=== PATIENT | female | born 1975 | race Caucasian/White ===

== ENCOUNTER 2017-02-26 23:28 | Emergency (ER) | payer OTHER ==
--- NOTE | 2017-02-27 06:00 | ED ORDER SUMMARY ---
..... Patient: RODRIGUE ROSE OrderSheet [facility] VisitID: [id number] [place] [address] 41y, F Registration Date/Time: 02/26/2017 ORDER SHEET Weight: 56.6 kg (estimated) Allergies: None GENERAL ORDERS: UA-Culture if indicated Urgent (23:54 02/26/2017 RMarsden R.N. per protocol) (Collected 0:01 RMarsden R.N.) (0:10 AMcQuoid ER Tech1) CT Abd/Pel w Cont (No) (N/A) Urgent (00:56 02/27/2017 Pio BRADY) (Ack 1:04 Jak) (2:01 Saqib) CBC w Diff Urgent (00:57 02/27/2017 Pio BRADY) (Ack 1:04 Jak) (Collected 1:16 RMarsden R.N.) (1:22 AMcQuoid ER Tech1) CMP Urgent (00:57 02/27/2017 Pio BRADY) (Ack 1:04 Jak) (Collected 1:16 RMarsden R.N.) (1:22 AMcQuoid ER Tech1) Amylase Urgent (00:57 02/27/2017 Pio BRADY) (Ack 1:04 Jak) (Collected 1:16 RMarsden R.N.) (1:22 AMcQuoid ER Tech1) Lipase Urgent (00:57 02/27/2017 Pio BRADY) (Ack 1:04 Jak) (Collected 1:16 RMarsden R.N.) (1:22 AMcQuoid ER Tech1) MEDICATION ORDERS: IV FLUIDS: Zofran IV 4 mg (NOW) (23:52 02/26/2017 RMarsden R.N. per protocol) (0:01 RMarsden R.N.) IV Saline Lock (23:54 02/26/2017 RMarsden R.N. per protocol) (0:02 RMarsden R.N.) Demerol IV 12.5 mg (NOW) (01:11 02/27/2017 Pio BRADY) (Ack 1:17 RMarsden R.N.) (1:29 RMarsden R.N.) IV NS : initial bolus none -, then 1000 mL/hr for X1 (NOW); Routine (:02/27/2017 Pio BRADY) (1:45 RMarsden R.N.) Zofran IV 4 mg (NOW) (:02/27/2017 Pio BRADY) (1:46 RMarsden R.N.) Dilaudid IV 0.5 mg (NOW) (02:02/27/2017 Pio BRADY) (Ack 3:30 RMarsden R.N.) (3:47 RMarsden R.N.) Ativan IV 0.5 mg (NOW) (:02/27/2017 Pio BRADY) (Ack 3:30 RMarsden R.N.) (3:48 RMarsden R.N.) Toradol IV 30 mg (NOW) (02:02/27/2017 Pio BRADY) (Ack 3:30 RMarsden R.N.) (3:48 RMarsden R.N.) ORDER SHEET NOTES: [Electronically signed by Saba Miller R.N. (06:02 02/27/2017)] [Electronically signed by Jono Najera MD (07:38 02/28/2017)] [Electronically locked/signed by Saba Miller R.N. (06:02 02/27/2017)]
--- NOTE | 2017-02-27 06:00 | ED ORDER SUMMARY ---
..... Patient: RODRIGUE ROSE OrderSheet [facility] VisitID: [id number] [place] [address] 41y, F Registration Date/Time: 02/26/2017 ORDER SHEET Weight: 56.6 kg (estimated) Allergies: None GENERAL ORDERS: UA-Culture if indicated Urgent (23:54 02/26/2017 RMarsden R.N. per protocol) (Collected 0:01 RMarsden R.N.) (0:10 AMcQuoid ER Tech1) CT Abd/Pel w Cont (No) (N/A) Urgent (00:56 02/27/2017 Pio BRADY) (Ack 1:04 Jak) (2:01 Saqib) CBC w Diff Urgent (00:57 02/27/2017 Pio BRADY) (Ack 1:04 Jak) (Collected 1:16 RMarsden R.N.) (1:22 AMcQuoid ER Tech1) CMP Urgent (00:57 02/27/2017 Pio BRADY) (Ack 1:04 Jak) (Collected 1:16 RMarsden R.N.) (1:22 AMcQuoid ER Tech1) Amylase Urgent (00:57 02/27/2017 Pio BRADY) (Ack 1:04 Jak) (Collected 1:16 RMarsden R.N.) (1:22 AMcQuoid ER Tech1) Lipase Urgent (00:57 02/27/2017 Pio BRADY) (Ack 1:04 Jak) (Collected 1:16 RMarsden R.N.) (1:22 AMcQuoid ER Tech1) MEDICATION ORDERS: IV FLUIDS: Zofran IV 4 mg (NOW) (23:52 02/26/2017 RMarsden R.N. per protocol) (0:01 RMarsden R.N.) IV Saline Lock (23:54 02/26/2017 RMarsden R.N. per protocol) (0:02 RMarsden R.N.) Demerol IV 12.5 mg (NOW) (01:11 02/27/2017 Pio BRADY) (Ack 1:17 RMarsden R.N.) (1:29 RMarsden R.N.) IV NS : initial bolus none -, then 1000 mL/hr for X1 (NOW); Routine (:02/27/2017 Pio BRADY) (1:45 RMarsden R.N.) Zofran IV 4 mg (NOW) (:02/27/2017 Pio BRADY) (1:46 RMarsden R.N.) Dilaudid IV 0.5 mg (NOW) (02:02/27/2017 Pio BRADY) (Ack 3:30 RMarsden R.N.) (3:47 RMarsden R.N.) Ativan IV 0.5 mg (NOW) (:02/27/2017 Pio BRADY) (Ack 3:30 RMarsden R.N.) (3:48 RMarsden R.N.) Toradol IV 30 mg (NOW) (02:02/27/2017 Pio BRADY) (Ack 3:30 RMarsden R.N.) (3:48 RMarsden R.N.) ORDER SHEET NOTES: [Electronically signed by Saba Miller R.N. (06:02 02/27/2017)] [Electronically signed by Jono Najera MD (07:38 02/28/2017)] [Electronically locked/signed by Saba Miller R.N. (06:02 02/27/2017)]
--- NOTE | 2017-02-27 06:00 | ED NURSING NOTES ---
Clinical Report - Nurses [facility] [place] [address] 02/26/2017 23:33 Patient: RODRIGUE ROSE TRIAGE Acuity: LEVEL 3. Chief Complaint: ABDOMINAL PAIN and NAUSEA and (bloating). 23:49 02/26/17. Alert. No acute distress. SEPSIS SCREEN: Sepsis Screen. Negative (no infection suspected/documented). BERHANE COMA SCORE: Tracy Coma Scale: 15- eyes open spontaneously (4); best verbal response- oriented x 4 (5); best motor response- obeys commands (6). --23:50 Saba Miller R.N. 23:38 02/26/17. BP: 103/60 (regular adult cuff) taken on the left arm, while sitting. HR: 65. RR: 14. O2 saturation: 100%. Temp: 98.1 F. --23:50 Saba Miller R.N. Weight: 56.6 kg estimated. Height/Length: 66 inches Estimated. BMI: 20.1. --23:50 Saba Miller R.N. Medications None. --23:44 Saba Miller R.N. Allergies None. --23:44 Saba Miller R.N. History Arrived by private vehicle. Historian: patient. Accompanied by family. This started today. ( Patient states she became bloated today, and then began feeling lower abdominal pain that "radiates out" to the rest of the abdomen. Patient states she felt a little better after rest, but then the pain returned. She states "I felt like I was going to pass out so I came in"). ( Patient's states she has vomited 5 times). Last oral intake by patient was yesterday. Treatment INFECTION CONTROL COORDINATOR: Took Tylenol. (gas-x). PAST MEDICAL HX: Immunizations: up-to-date. Denies current . SOCIAL HX: Never smoker. Occasional alcohol use. No drug use. FALL RISK ASSESSMENT: Fall risk assessment completed. No fall risk identified. NUTRITIONAL RISK ASSESSMENT: The nutritional risk assessment revealed no deficiencies. FUNCTIONAL ASSESSMENT: Functional assessment: no impairments noted. LEARNING NEEDS ASSESSMENT: The learning needs assessment revealed no barriers. SKIN INTEGRITY ASSESSMENT: Skin integrity risk assessment completed. No skin integrity risk identified. --23:50 Saba Miller R.N. PROBLEMS: no known problems. ADDITIONAL SURGERIES: no known surgeries. Interventions ID band on patient. To treatment room. --23:50 Saba Miller R.N. PHYSICAL ASSESSMENT 23:51 02/26/17. Ambulatory to room. GENERAL / NEURO / PSYCH: Alert. Oriented X 4. Appears in no acute distress. HEENT: Mucous membranes are pink. RESPIRATORY: Respirations not labored. Breath sounds within normal limits. CVS: Capillary refill less than 2 seconds. GI / : The patient has had nausea. Emesis noted. Has vomited once (clear liquid emesis). Abdominal distention with tenderness to palpation. Bowel sounds within normal limits. SKIN: Skin is warm and dry. --23:51 Saba Miller R.N. NURSING PROGRESS NOTES 23:49 02/26/2017 Site #1 started via IV in the left antecubital space with an 20g angiocath, with aseptic technique and good blood return; one attempt. Blood drawn: rainbow set. Labeled in the presence of the patient and sent to the lab. Saline lock flushed with 10 mL saline. --23:54 Shweta Teran 00:01 02/27/2017 Zofran (Ondansetron HCl) IVP 4 mg given over 2 minute(s) via site #1. Allergies verified and confirmed 5 rights. IV patency established. IV site checked: no pain, redness, or swelling. IV flushed thoroughly pre- and post-medication administration. IVP given by RN. --00:01 Saba Miller R.N. 00:03 02/27/17. Patient gowned. Reassurance given. Patient identifiers checked. Call light placed in reach. Side rails up x 1. Bed placed in lowest position. Brakes of bed on. Patient ready for evaluation- chart flagged and notification provided. --00:03 Saba Miller R.N. 01:15. ( Tech was at patient's bedside to give her extra blankets as requested by patient. Patient also requesting pain medication, ER notified.). --01:23 Soledad Buenrostro late entry - 23:46. Patient ID band checked for patient name and birthdate: patient confirmed. Blood samples drawn from the left antecubital space by nurse per protocol ; labeled in presence of the patient and sent to lab: rosa set. (drawn by ADELA Rock). Patient ID band checked for patient name and birthdate: patient confirmed. Instructions provided to collect clean catch urine and patient verbalized understanding. Clean catch urine collected with return of yellow-colored urine; sample sent to lab for urinalysis. Specimen labeled in the presence of the patient. --00:15 Saba Miller R.N. 01:29 02/27/2017 Demerol (Meperidine HCl) IVP 12.5 mg given over 1 minute(s) via site #1. Allergies verified and confirmed 5 rights. IV patency established. IV site checked: no pain, redness, or swelling. IV flushed thoroughly pre- and post-medication administration. IVP given by RN. --01:29 Saba Miller R.N. 01:40 02/27/2017 Started bag #1 1000 mL IV Fluids IV NS (Saline); bolus of 1000 mL wide open via site #1. Allergies verified and confirmed 5 rights. IV patency established. IV site checked: no pain, redness, or swelling. IV flushed thoroughly pre- and post-medication administration. Completed per protocol. --01:45 Saba Miller R.N. 01:41 02/27/2017 Zofran (Ondansetron HCl) IVP 4 mg given over 2 minute(s) via site #1. Allergies verified and confirmed 5 rights. IV patency established. IV site checked: no pain, redness, or swelling. IV flushed thoroughly pre- and post-medication administration. IVP given by RN. --01:46 Saba Miller R.N. 02:02 02/27/17. BP: 111/57 taken on the right arm, while lying. HR: 74. RR: 16. O2 saturation: 98% on room air. Pain level now: 12/21. --02:19 Saba Miller R.N. Pulse oximeter and NIBP monitor placed on patient. Patient and family informed about reason for wait and about plan of care. --02:19 Saba Miller R.N. 02:02 02/27/2017 Demerol IVP Response: no adverse reaction pain is improving. The patient feels better. 02/27/2017 02:02 BP: 111/57. HR: 74. RR: 16. O2 saturation: 98%. Pain level now: 12/21. --02:43 Saba Miller R.N. 02:41 02/27/17. Reassessment after fluids administered and medication administered. She is sleeping and has had no adverse reaction. Overall patient status is improved. --02:41 Saba Miller R.N. 03:37 02/27/2017 Dilaudid (HYDROmorphone HCl PF) IVP 0.5 mg given over 1.5 minute(s) via site #1. Allergies verified, confirmed 5 rights and sedative warning given to the patient and patient's family. IV patency established. IV site checked: no pain, redness, or swelling. IV flushed thoroughly pre- and post-medication administration. IVP given by RN. --03:47 Saba Miller R.N. 03:43 02/27/2017 Toradol IVP 30 mg given over 2 minute(s) via site #1. Allergies verified and confirmed 5 rights. IV patency established. IV site checked: no pain, redness, or swelling. IV flushed thoroughly pre- and post-medication administration. IVP given by RN. --03:48 Saba Miller R.N. 03:48 02/27/2017 Ativan (LORazepam) IVP 0.5 mg given over 2 minute(s) via site #1. Allergies verified, confirmed 5 rights and sedative warning given to the patient and patient's family. IV patency established. IV site checked: no pain, redness, or swelling. IV flushed thoroughly pre- and post-medication administration. IVP given by RN. --03:48 Saba Miller R.N. Patient and family informed about reason for wait and about plan of care. --03:59 Saba Miller R.N. 04:08 02/27/17. BP: 103/61. HR: 86. RR: 16. O2 saturation: 97% on room air. Pain level now: 10/23. Additional comments: Lights dimmed; male nursing teacher remains at bedside. --04:08 Kala Bowers, ER Tech1 04:26 02/27/17. BP: 99/56 taken on the right arm, while sitting. HR: 92. RR: 15. O2 saturation: 96%. Pain level now: 0. --04:26 Saba Miller R.N. 04:10 02/27/2017 Dilaudid IVP Response: no adverse reaction pain is gone now. The patient feels better. 02/27/2017 04:08 BP: 103/61. HR: 86. RR: 16. O2 saturation: 97%. Pain level now: 10/23. --04:42 Saba Miller R.N. 04:10 02/27/2017 Toradol IVP Response: no adverse reaction pain is improving. The patient feels better. 02/27/2017 04:08 BP: 103/61. HR: 86. RR: 16. O2 saturation: 97%. Pain level now: 10/23. --04:43 Saba Miller R.N. 04:10 02/27/2017 Ativan IVP Response: no adverse reaction the patient feels better. 02/27/2017 04:08 BP: 103/61. HR: 86. RR: 16. O2 saturation: 97%. Pain level now: 10/23. --04:43 Saba Miller R.N. DISPOSITION / DISCHARGE 05:08 02/27/17. BP: 101/52. HR: 83. RR: 15. O2 saturation: 96%. Temp: deferred. Pain level now: 0. --05:08 Saba Miller R.N. 05:09 02/27/17. No learning barriers present. Discharge instructions provided and reviewed with the patient and spouse. Reviewed warnings. Reviewed medication(s). Treatments reviewed. Reviewed referrals. Activity restrictions reviewed. Patient and spouse verbalized understanding. Written instructions provided in Moldovan. The patient was discharged home and accompanied by spouse. She left the Emergency Department ambulatory and via private vehicle. Spouse driving. --05:09 Saba Miller R.N. Locked/Released at 02/27/2017 6:02 by Saba Miller R.N.
--- NOTE | 2017-02-27 06:00 | ED CLINICAL REPORT ---
Clinical Report - Physicians/Mid Levels [facility] [address] [place] [address] 02/26/2017 23:33 Patient: RODRIGUE ROSE Time Seen: 00:51 Feb 27 2017. Arrived- By private vehicle. Historian- patient and family. CPT: ER phys charges level 5 (#[id number]). HISTORY OF PRESENT ILLNESS Chief Complaint: ABDOMINAL PAIN. At its maximum, severity described as moderate. When seen in the E.D., severity described as moderate. Modifying factors- worsened by movement. Relieved by rest. It is described as "pain", sharp and stabbing and it is described as located in the lower abdomen. (This started today. ( Patient states she became bloated today, and then began feeling lower abdominal pain that "radiates out" to the rest of the abdomen. Patient states she felt a little better after rest, but then the pain returned. She states "I felt like I was going to pass out so I came in"). ( Patient's states she has vomited 5 times). Last oral intake by patient was yesterday.). Is still present. The patient has had nausea and vomiting. Similar symptoms previously: None. Recent medical care: Not recently seen/assessed. REVIEW OF SYSTEMS No constipation, black stools, hematemesis, difficulty with urination or pain with urination. No urinary frequency, fever, sore throat, chest pain or difficulty breathing. No cough, joint pain, skin rash, chills or back pain. Denies current . All systems otherwise negative, except as recorded above. PAST HISTORY Ovarian cyst. Additional Surgeries: no known surgeries. Medications: None. Allergies: None. SOCIAL HISTORY Never smoker. No alcohol use or drug use. ADDITIONAL NOTES The nursing notes have been reviewed. PHYSICAL EXAM Vital Signs: 02/26/2017 23:38 BP: 103/60. HR: 65. RR: 14. O2 saturation: 100%. Temp: 98.1 F. Appearance: Alert. Appears to be in pain. Patient in moderate distress. Eyes: Pupils equal, round and reactive to light. Eyes normal inspection. ENT: Pharynx normal. Neck: Normal inspection. CVS: Normal heart rate and rhythm. Heart sounds normal. Pulses normal. Respiratory: No respiratory distress. Breath sounds normal. Chest nontender. Abdomen: Soft. Moderate tenderness in the lower abdomen with guarding present. Abnormal bowel sounds: diminished. Back: Normal inspection. No CVA tenderness. Skin: Skin warm. Normal skin color. No rash. Neuro: Oriented X 3. No motor deficit. No sensory deficit. LABS, X-RAYS, AND EKG Abdominal CT: Appendix normal. No diverticulitis. Ovarian cyst on the left , some free fluid Hemangioma in liver. Needs US follow-up. Abdominal CT performed with IV contrast. The study was independently viewed by me and interpreted by the radiologist. Laboratory Tests: CBC w Diff: (CARTER: 02/27/2017 00:01) ( MsgRcvd 02/27/2017 01:08) Final results Test Result Flag Units (Reference) WHITE BLOOD COUNT 14.8 H K/uL (4.5-11.5) RED BLOOD COUNT 3.96 L M/uL (4.00-5.20) HEMOGLOBIN 12.5 gm/dL (12.0-16.0) HEMATOCRIT 36.2 % (36.0-46.0) MEAN CELL VOLUME 91 fL (80-100) MEAN CORPUSCULAR HGB 32 pg (26-34) MEAN CORPUSCULAR HGB CONC 35 g/dL (31-37) RED CELL DISTRIBUTION WIDTH 13.1 % (11.6-14.8) PLATELET COUNT 193 K/uL (150-400) NEUTROPHIL % 82.2 H % (50-75) LYMPH % 13.7 L % (25-40) MONO % 3.6 % (3-14) EOSINOPHIL % 0.4 % (0-4) BASOPHIL % 0.1 % (0-2) CMP: (CARTER: 02/27/2017 00:01) ( MsgRcvd 02/27/2017 01:20) Final results Test Result Flag Units (Reference) GLUCOSE 116 H mg/dL (70-110) BUN 13 mg/dL (7-18) CREATININE 0.7 mg/dL (0.6-1.3) Estimated GFR >60 mL/min Estimated GFR- >60 mL/min Note: Persistent reduction over 3 months in eGFR<60 mL/min/1.73 m2 defines CKD. Patients with eGFR values>=60 mL/min/1.73 m2 may also have CKD if evidence ofpersistent proteinuria. Additional information may be foundat www.kidney.org. SODIUM 138 mmol/L (136-145) POTASSIUM 3.4 L mmol/L (3.5-5.1) CHLORIDE 101 mmol/L (98-107) CARBON DIOXIDE 28 mmol/L (21-32) CALCIUM 8.6 mg/dL (8.5-10.1) TOTAL PROTEIN 7.1 g/dL (6.4-8.2) ALBUMIN 3.7 g/dL (3.3-5.0) BILIRUBIN, TOTAL 0.6 mg/dL (0.0-1.0) ALKALINE PHOSPHATASE 64 U/L (46-116) AST (SGOT) 15 U/L (15-37) ALT (SGPT) 20 U/L (12-78) LIPASE 94 U/L (73-393) AMYLASE 41 U/L (25-115) UA-Culture if indicated: (CARTER: 02/26/2017 23:47) ( MsgRcvd 02/27/2017 00:22) Final results Test Result Flag Units (Reference) URINE COLOR YELLOW URINE APPEARANCE CLEAR URINE GLUCOSE NEGATIVE (NEGATIVE) URINE BILIRUBIN NEGATIVE (NEGATIVE) URINE KETONE NEGATIVE (NEGATIVE) URINE SPECIFIC GRAVITY 1.015 (1.010-1.030) URINE PH 6.0 (5.0-8.0) URINE PROTEIN NEGATIVE (NEGATIVE) URINE UROBILINOGEN 0.2 EU/dL (0.2-1.0) URINE NITRITE NEGATIVE (NEGATIVE) URINE BLOOD NEGATIVE (NEGATIVE) URINE LEUK ESTERASE NEGATIVE (NEGATIVE) URINE RBC RARE rbc/hpf (0-1) URINE WBC 1-3 wbc/hpf (0-1) URINE EPITHELIAL CELLS 5-10 EPI/hpf (0-5) URINE BACTERIA NONE SEEN (NONE SEEN) URINE COMMENT CULT NOT INDICATED URINE CULTURES ARE SET-UP BASED ON THE FOLLOWING CRITERIA:POSITIVE NITRITEPOSITIVE LEUKOCYTE ESTERASEGREATER THAN 10 WHITE BLOOD CELLSMODERATE (2+) OR GREATER BACTERIA . PROGRESS AND PROCEDURES Course of Care: 04:58 02/27/17. Much better now. 06:19 02/27/17. Pt has left ER and Dr Gage called with over-read and thinks appendix may be part of the problem. Pt called to return for r/o appendicitis and no charge for second ER visit. Patient/family counseled. Disposition: Discharged. Condition: unchanged. CLINICAL IMPRESSION Single ruptured simple left ovarian cyst. INSTRUCTIONS No strenuous activity. Rest. Drink plenty of fluids. Warnings: Further evaluation is necessary. GENERAL WARNINGS: Return or contact your physician immediately if your condition worsens or changes unexpectedly, if not improving as expected, or if other problems arise. Prescription Medications: Zofran (orally disintegrating tablets) 4 mg: take 1 orally every 4 hours as needed for nausea and vomiting. Dispense ten (10). No refill. Substitution is permissible. Oxycodone/APAP 5 mg/325 mg: take 1 tablet orally every 6 hours as needed for pain. Dispense fifteen (15). No refills. OTC Medications: Take ibuprofen (Advil, Nuprin, etc.) according to label instructions. Available over the counter. Follow-up: Follow up with your doctor Wednesday in two days if not better. Understanding of the discharge instructions verbalized by patient and family. Discharge instructions reviewed with and understanding was verbalized by spouse. (Electronically signed by Jono Najera MD 02/28/2017 7:38)
--- NOTE | 2017-02-27 06:49 | DIAGNOSTIC IMAGING REPORT ---
PROCEDURE: CT ABD/PELVIS WITH CONTRAST INDICATION: Right abdominal pain. Vomiting. Elevated white blood count (14,800). TECHNIQUE: 125 ml of Isovue 300 were injected intravenously and axial images were obtained of the entire abdomen and pelvis with sagittal and coronal reformations. Preliminary report provided by Ryley Saha MD ([facility]). COMPARISON: None. FINDINGS: ABDOMEN: There is a partially filled tubular structure in the right lower abdomen (axial images 54 - 60) suspicious for a distended appendix with probable hyperdense material at the base of the appendix (note that cecum is medial in position). There are small layering calcified gallstones (most likely incidental finding). There is a 2.3 cm low area in the right lobe of the liver with irregular margins. There is a 10 mm cyst in the central left lobe of the liver. Liver is otherwise normal. Spleen, pancreas, kidneys, and aorta are normal. PELVIS: There is a small amount of free fluid in the right pelvis with mild indistinctness of right adnexal structures. There is 1.8 cm left ovarian cyst. Uterus appears normal. IMPRESSION: 1. Preliminary report suggested normal appendix. However, upon review, there is a tubular structure in the right lower quadrant which may represent a distended and fluid filled appendix, which raises the possibility of acute appendicitis. 2. Associated small amount of fluid in the right pelvis with indistinctness of right adnexal structures might also be a reflection of appendicitis, although pelvic inflammatory disease could also have this appearance. 3. Cholelithiasis (small calcified gallstones). 4. There is a 2.3 cm low density area in the right lobe of the liver which may represent an hemangioma. Ultrasound is recommended to confirm (after the patient's acute illness). 5. Findings were discussed with Dr. Najera (0600 hours). All CT scans at this facility use dose modulation, iterative reconstruction, and/or weight-based dosing when appropriate to reduce radiation dose to as low as reasonably achievable.
[2017-02-27] MEDS ORDERED: NORCO1 TA1 PO ×2 (12:50)
--- NOTE | 2017-02-28 07:38 | ED DISCHARGE INSTRUCTIONS ---
Patient: RODRIGUE ROSE General Instructions [facility] VisitID: [id number] [place] [address] 41y, F Registration Date/Time: 02/26/2017 Single ruptured simple left ovarian cyst. INSTRUCTIONS No strenuous activity. Rest. Drink plenty of fluids. Warnings: Further evaluation is necessary. GENERAL WARNINGS: Return or contact your physician immediately if your condition worsens or changes unexpectedly, if not improving as expected, or if other problems arise. Prescription Medications: Zofran (orally disintegrating tablets) 4 mg: take 1 orally every 4 hours as needed for nausea and vomiting. Dispense ten (10). No refill. Substitution is permissible. Oxycodone/APAP 5 mg/325 mg: take 1 tablet orally every 6 hours as needed for pain. Dispense fifteen (15). No refills. OTC Medications: Take ibuprofen (Advil, Nuprin, etc.) according to label instructions. Available over the counter. Follow-up: Follow up with your doctor Wednesday in two days if not better. Understanding of the discharge instructions verbalized by patient and family. Discharge instructions reviewed with and understanding was verbalized by spouse. ADDITIONAL INFORMATION Ovarian Cyst The ovary is a small organ located on each side of the uterus. During each menstrual cycle a tiny egg sac forms in the ovary. If the egg is released but does not occur, this sac usually dissolves. Sometimes, the sac may fill with fluid. It then enlarges into a painful cyst. Usually the cyst will rupture or shrink on its own. In either case, the pain gradually goes away over the next 1-3 days. If the cyst does not shrink or rupture, it may cause continued pain. Home Care: Rest in bed and avoid heavy exertion until you are feeling better. Heat to the lower abdomen usually helps (heating pad or hot packs -- a small towel soaked in hot water). You may use acetaminophen (Tylenol) or ibuprofen (Motrin, Advil) to control pain, unless another pain medicine was prescribed. [NOTE: If you have chronic liver or kidney disease or ever had a stomach ulcer or GI bleeding, talk with your doctor before using these medicines.] Follow Up: See your doctor within the next 2-3 days if your pain doesnt improve. Otherwise, follow up with your doctor after your next period or as directed by our staff. Get Prompt Medical Attention if any of the following occur: Pain worsens or fails to respond to the above measures Fever of 100.4F (38C) or higher, or as directed by your healthcare provider Heavy vaginal bleeding (soaking one pad an hour for three hours) You feel weak or dizzy Fainting Passage of a pink or hou tissue with menstrual bleeding Ondansetron Oral disintegrating tablet What is this medicine? ONDANSETRON (on JEREMIAH se dominga) is used to treat nausea and vomiting caused by chemotherapy. It is also used to prevent or treat nausea and vomiting after surgery. How should I use this medicine? These tablets are made to dissolve in the mouth. Do not try to push the tablet through the foil backing. With dry hands, peel away the foil backing and gently remove the tablet. Place the tablet in the mouth and allow it to dissolve, then swallow. While you may take these tablets with water, it is not necessary to do so. Talk to your aircraft navigator regarding the use of this medicine in children. Special care may be needed. What side effects may I notice from receiving this medicine? Side effects that you should report to your doctor or health care asst as soon as possible: allergic reactions like skin rash, itching or hives, swelling of the face, lips, or tongue breathing problems dizziness fast or irregular heartbeat feeling faint or lightheaded, falls fever and chills swelling of the hands and feet tightness in the chest Side effects that usually do not require medical attention (report to your doctor or health care asst if they continue or are bothersome): constipation or diarrhea headache What may interact with this medicine? Do not take this medicine with any of the following medications: -apomorphine -cisapride -dofetilide -dronedarone -pimozide -thioridazine -ziprasidone This medicine may also interact with the following medications: -carbamazepine -phenytoin -rifampicin -tramadol -other medicines that prolong the QT interval (cause an abnormal heart rhythm) What if I miss a dose? If you miss a dose, take it as soon as you can. If it is almost time for your next dose, take only that dose. Do not take double or extra doses. Where should I keep my medicine? Keep out of the reach of children. Store between 2 and 30 degrees C (36 and 86 degrees F). Throw away any unused medicine after the expiration date. What should I tell my health care provider before I take this medicine? They need to know if you have any of these conditions: heart disease history of irregular heartbeat liver disease low levels of magnesium or potassium in the blood an unusual or allergic reaction to ondansetron, granisetron, other medicines, foods, dyes, or preservatives or trying to get breast-feeding What should I watch for while using this medicine? Check with your doctor or health care asst as soon as you can if you have any sign of an allergic reaction. You have been given the following additional information: Ovarian Cyst Ondansetron Oral disintegrating tablet No strenuous activity. Rest. (Electronically signed by Jono Najera MD 02/28/2017 7:38)
--- NOTE | 2017-02-28 07:38 | ED MAR SUMMARY ---
..... Medication Administration Record [facility] [address] [place] [address] Patient: RODRIGUE ROSE Visit ID: [id number] 41y, F Weight: 56.6 kg Height/Length: 66 in BMI: 20.1 ALLERGIES: None Given 00:01 02/27/2017 Saba Miller R.N. Medication Administered: ZOFRAN [IVP] (ONDANSETRON HCL), Dose: 4 mg IVP over 2 minute(s), Site: #1 left AC. Medication Ordered: Zofran IV 4 mg (NOW). Given 01:29 02/27/2017 Saba Miller R.N. Medication Administered: DEMEROL [IVP] (MEPERIDINE HCL), Dose: 12.5 mg IVP over 1 minute(s), Site: #1 left AC. Medication Ordered: Demerol IV 12.5 mg (NOW). Start 01:40 02/27/2017 Saba Miller R.N. Medication Administered: IV NS (SALINE), Dose: IV Fluids, Bolus: 1000 mL wide open, Dispensed: 1000 mL bag, Site: #1 left AC. Medication Ordered: IV NS : initial bolus none -, then 1000 mL/hr for X1 (NOW); Routine. Given 01:41 02/27/2017 Sbaa Miller R.N. Medication Administered: ZOFRAN [IVP] (ONDANSETRON HCL), Dose: 4 mg IVP over 2 minute(s), Site: #1 left AC. Medication Ordered: Zofran IV 4 mg (NOW). Given 03:37 02/27/2017 Saba Miller R.N. Medication Administered: DILAUDID [IVP] (HYDROMORPHONE HCL PF), Dose: 0.5 mg IVP over 1.5 minute(s), Site: #1 left AC. Medication Ordered: Dilaudid IV 0.5 mg (NOW). Given 03:43 02/27/2017 Saba Miller R.N. Medication Administered: TORADOL [IVP], Dose: 30 mg IVP over 2 minute(s), Site: #1 left AC. Medication Ordered: Toradol IV 30 mg (NOW). Given 03:48 02/27/2017 Saba Miller R.N. Medication Administered: ATIVAN [IVP] (LORAZEPAM), Dose: 0.5 mg IVP over 2 minute(s), Site: #1 left AC. Medication Ordered: Ativan IV 0.5 mg (NOW).
--- NOTE | 2017-02-28 07:38 | ED MED RECONCILIATION SUMMARY ---
Patient: RODRIGUE ROSE Medication Reconciliation Report [facility] VisitID: [id number] [address] [place] [address] 41y, F Registration Date/Time: 02/26/2017 Weight: 56.6 kg Height/Length: 66 in. BMI: 20.1 ALLERGIES: None The patient's Home Medications are listed below: NONE. The source(s) of the original Home Medication information: Not obtained. The following Medications were given to the patient in the Emergency Department: Zofran [IVP] IVP 4 mg, administered: 02/27/2017 12:01:00 AM Demerol [IVP] IVP 12.5 mg, administered: 02/27/2017 1:29:00 AM IV NS IV Fluids bolus 1000 mL wide open, administered: 02/27/2017 1:40:00 AM Zofran [IVP] IVP 4 mg, administered: 02/27/2017 1:41:00 AM Dilaudid [IVP] IVP 0.5 mg, administered: 02/27/2017 3:37:00 AM Toradol [IVP] IVP 30 mg, administered: 02/27/2017 3:43:00 AM Ativan [IVP] IVP 0.5 mg, administered: 02/27/2017 3:48:00 AM The following Medications were prescribed to the patient: Take ibuprofen (Advil, Nuprin, etc.) according to label instructions. Available over the counter. -- Jono Najera MD Zofran (orally disintegrating tablets) 4 mg: take 1 orally every 4 hours as needed for nausea and vomiting. Dispense ten (10). No refill. Substitution is permissible. -- Jono Najera MD Oxycodone/APAP 5 mg/325 mg: take 1 tablet orally every 6 hours as needed for pain. Dispense fifteen (15). No refills. -- Jono Najera MD
--- NOTE | 2017-02-28 07:38 | ED DISCHARGE INSTRUCTIONS ---
Patient: RODRIGUE ROSE General Instructions [facility] VisitID: [id number] [place] [address] 41y, F Registration Date/Time: 02/26/2017 Single ruptured simple left ovarian cyst. INSTRUCTIONS No strenuous activity. Rest. Drink plenty of fluids. Warnings: Further evaluation is necessary. GENERAL WARNINGS: Return or contact your physician immediately if your condition worsens or changes unexpectedly, if not improving as expected, or if other problems arise. Prescription Medications: Zofran (orally disintegrating tablets) 4 mg: take 1 orally every 4 hours as needed for nausea and vomiting. Dispense ten (10). No refill. Substitution is permissible. Oxycodone/APAP 5 mg/325 mg: take 1 tablet orally every 6 hours as needed for pain. Dispense fifteen (15). No refills. OTC Medications: Take ibuprofen (Advil, Nuprin, etc.) according to label instructions. Available over the counter. Follow-up: Follow up with your doctor Wednesday in two days if not better. Understanding of the discharge instructions verbalized by patient and family. Discharge instructions reviewed with and understanding was verbalized by spouse. ADDITIONAL INFORMATION Ovarian Cyst The ovary is a small organ located on each side of the uterus. During each menstrual cycle a tiny egg sac forms in the ovary. If the egg is released but does not occur, this sac usually dissolves. Sometimes, the sac may fill with fluid. It then enlarges into a painful cyst. Usually the cyst will rupture or shrink on its own. In either case, the pain gradually goes away over the next 1-3 days. If the cyst does not shrink or rupture, it may cause continued pain. Home Care: Rest in bed and avoid heavy exertion until you are feeling better. Heat to the lower abdomen usually helps (heating pad or hot packs -- a small towel soaked in hot water). You may use acetaminophen (Tylenol) or ibuprofen (Motrin, Advil) to control pain, unless another pain medicine was prescribed. [NOTE: If you have chronic liver or kidney disease or ever had a stomach ulcer or GI bleeding, talk with your doctor before using these medicines.] Follow Up: See your doctor within the next 2-3 days if your pain doesnt improve. Otherwise, follow up with your doctor after your next period or as directed by our staff. Get Prompt Medical Attention if any of the following occur: Pain worsens or fails to respond to the above measures Fever of 100.4F (38C) or higher, or as directed by your healthcare provider Heavy vaginal bleeding (soaking one pad an hour for three hours) You feel weak or dizzy Fainting Passage of a pink or hou tissue with menstrual bleeding Ondansetron Oral disintegrating tablet What is this medicine? ONDANSETRON (on JEREMIAH se dominga) is used to treat nausea and vomiting caused by chemotherapy. It is also used to prevent or treat nausea and vomiting after surgery. How should I use this medicine? These tablets are made to dissolve in the mouth. Do not try to push the tablet through the foil backing. With dry hands, peel away the foil backing and gently remove the tablet. Place the tablet in the mouth and allow it to dissolve, then swallow. While you may take these tablets with water, it is not necessary to do so. Talk to your councilperson regarding the use of this medicine in children. Special care may be needed. What side effects may I notice from receiving this medicine? Side effects that you should report to your doctor or health career development consultant as soon as possible: allergic reactions like skin rash, itching or hives, swelling of the face, lips, or tongue breathing problems dizziness fast or irregular heartbeat feeling faint or lightheaded, falls fever and chills swelling of the hands and feet tightness in the chest Side effects that usually do not require medical attention (report to your doctor or health career development consultant if they continue or are bothersome): constipation or diarrhea headache What may interact with this medicine? Do not take this medicine with any of the following medications: -apomorphine -cisapride -dofetilide -dronedarone -pimozide -thioridazine -ziprasidone This medicine may also interact with the following medications: -carbamazepine -phenytoin -rifampicin -tramadol -other medicines that prolong the QT interval (cause an abnormal heart rhythm) What if I miss a dose? If you miss a dose, take it as soon as you can. If it is almost time for your next dose, take only that dose. Do not take double or extra doses. Where should I keep my medicine? Keep out of the reach of children. Store between 2 and 30 degrees C (36 and 86 degrees F). Throw away any unused medicine after the expiration date. What should I tell my health care provider before I take this medicine? They need to know if you have any of these conditions: heart disease history of irregular heartbeat liver disease low levels of magnesium or potassium in the blood an unusual or allergic reaction to ondansetron, granisetron, other medicines, foods, dyes, or preservatives or trying to get breast-feeding What should I watch for while using this medicine? Check with your doctor or health career development consultant as soon as you can if you have any sign of an allergic reaction. You have been given the following additional information: Ovarian Cyst Ondansetron Oral disintegrating tablet No strenuous activity. Rest. (Electronically signed by Jono Najera MD 02/28/2017 7:38)
--- NOTE | 2017-02-28 07:38 | ED MED RECONCILIATION SUMMARY ---
Patient: RODRIGUE ROSE Medication Reconciliation Report [facility] VisitID: [id number] [address] [place] [address] 41y, F Registration Date/Time: 02/26/2017 Weight: 56.6 kg Height/Length: 66 in. BMI: 20.1 ALLERGIES: None The patient's Home Medications are listed below: NONE. The source(s) of the original Home Medication information: Not obtained. The following Medications were given to the patient in the Emergency Department: Zofran [IVP] IVP 4 mg, administered: 02/27/2017 12:01:00 AM Demerol [IVP] IVP 12.5 mg, administered: 02/27/2017 1:29:00 AM IV NS IV Fluids bolus 1000 mL wide open, administered: 02/27/2017 1:40:00 AM Zofran [IVP] IVP 4 mg, administered: 02/27/2017 1:41:00 AM Dilaudid [IVP] IVP 0.5 mg, administered: 02/27/2017 3:37:00 AM Toradol [IVP] IVP 30 mg, administered: 02/27/2017 3:43:00 AM Ativan [IVP] IVP 0.5 mg, administered: 02/27/2017 3:48:00 AM The following Medications were prescribed to the patient: Take ibuprofen (Advil, Nuprin, etc.) according to label instructions. Available over the counter. -- Jono Najera MD Zofran (orally disintegrating tablets) 4 mg: take 1 orally every 4 hours as needed for nausea and vomiting. Dispense ten (10). No refill. Substitution is permissible. -- Jono Najera MD Oxycodone/APAP 5 mg/325 mg: take 1 tablet orally every 6 hours as needed for pain. Dispense fifteen (15). No refills. -- Jono Najera MD
--- NOTE | 2017-02-28 07:38 | ED MAR SUMMARY ---
..... Medication Administration Record [facility] [address] [place] [address] Patient: RODRIGUE ROSE Visit ID: [id number] 41y, F Weight: 56.6 kg Height/Length: 66 in BMI: 20.1 ALLERGIES: None Given 00:01 02/27/2017 Saba Miller R.N. Medication Administered: ZOFRAN [IVP] (ONDANSETRON HCL), Dose: 4 mg IVP over 2 minute(s), Site: #1 left AC. Medication Ordered: Zofran IV 4 mg (NOW). Given 01:29 02/27/2017 Saba Miller R.N. Medication Administered: DEMEROL [IVP] (MEPERIDINE HCL), Dose: 12.5 mg IVP over 1 minute(s), Site: #1 left AC. Medication Ordered: Demerol IV 12.5 mg (NOW). Start 01:40 02/27/2017 Saba Miller R.N. Medication Administered: IV NS (SALINE), Dose: IV Fluids, Bolus: 1000 mL wide open, Dispensed: 1000 mL bag, Site: #1 left AC. Medication Ordered: IV NS : initial bolus none -, then 1000 mL/hr for X1 (NOW); Routine. Given 01:41 02/27/2017 Saba Miller R.N. Medication Administered: ZOFRAN [IVP] (ONDANSETRON HCL), Dose: 4 mg IVP over 2 minute(s), Site: #1 left AC. Medication Ordered: Zofran IV 4 mg (NOW). Given 03:37 02/27/2017 Saba Miller R.N. Medication Administered: DILAUDID [IVP] (HYDROMORPHONE HCL PF), Dose: 0.5 mg IVP over 1.5 minute(s), Site: #1 left AC. Medication Ordered: Dilaudid IV 0.5 mg (NOW). Given 03:43 02/27/2017 Saba Miller R.N. Medication Administered: TORADOL [IVP], Dose: 30 mg IVP over 2 minute(s), Site: #1 left AC. Medication Ordered: Toradol IV 30 mg (NOW). Given 03:48 02/27/2017 Saba Miller R.N. Medication Administered: ATIVAN [IVP] (LORAZEPAM), Dose: 0.5 mg IVP over 2 minute(s), Site: #1 left AC. Medication Ordered: Ativan IV 0.5 mg (NOW).
== END 2017-02-27 09:00 | disposition home or self-care (01) ==
LOC: ED SRH 23:28
DX: R69 Illness, unspecified (principal)
CPT/HCPCS: 90004; 90100; 92235; 92530; 95059

== ENCOUNTER 2017-02-27 07:14 | Observation (INO) | payer OTHER ==
[2017-02-27] VITALS (12 sets, daily range): BP systolic 94–115; BP diastolic 48–77
[~2017-02-27] VITALS: Ht 157.5 cm; Wt 57.0 kg
--- NOTE | 2017-02-27 07:47 | ED CLINICAL REPORT ---
Clinical Report - Physicians/Mid Levels Merg[facility] With [facility] [address] [place] [address] 02/27/2017 7:14 Patient: RODRIGUE ROSE Time Seen: 07:26 Feb 27 2017. Arrived- By private vehicle. Historian- patient. HISTORY OF PRESENT ILLNESS Chief Complaint: ABDOMINAL PAIN. This started last night Asked to return to the ER due to contrasting opinions over the abdominal CT. Initial "pain", is sharp and stabbing and it is described as located in the lower abdomen. (This started today. ( Patient states she became bloated today, and then began feeling lower abdominal pain that "radiates out" to the rest of the abdomen. Patient states she felt a little better after rest, but then the pain returned. She states "I felt like I was going to pass out so I came in"). ( Patient's states she has vomited 5 times). Last oral intake by patient was yesterday.). Is still present. The patient has had nausea and vomiting. It is described as located in the lower abdomen. At its maximum, severity described as moderate. When seen in the E.D., severity described as moderate. Modifying factors- worsened by movement. Not relieved by anything. The patient has had nausea, loss of appetite and vomiting. No diarrhea. The patient has had recent travel. Similar symptoms previously: None. Recent medical care: Not recently seen/assessed. REVIEW OF SYSTEMS No constipation, black stools, hematemesis, difficulty with urination or pain with urination. No urinary frequency, fever, sore throat or throat or chest pain. No difficulty breathing, cough, joint pain, skin rash or chills. No weakness, diabetic symptoms or easy bruising. Denies current . The patient has had back pain. All systems otherwise negative, except as recorded above. PAST HISTORY Ovarian Cyst. No history of peptic ulcer. No history of gallstones or bowel obstruction. Has not had urinary calculi. Medications: None. Allergies: None. SOCIAL HISTORY Never smoker. Occasional alcohol use. No drug use. ADDITIONAL NOTES The nursing notes have been reviewed. PHYSICAL EXAM Vital Signs: 02/27/2017 07:39 BP: 103/60. HR: 103. RR: 17. O2 saturation: 100%. Temp: 98.9 F. Appearance: Alert. Patient in moderate distress. Eyes: Eyes normal inspection. ENT: Pharynx normal. Neck: Normal inspection. CVS: Normal heart rate and rhythm. Heart sounds normal. Pulses normal. Respiratory: No respiratory distress. Breath sounds normal. Chest nontender. Abdomen: Soft. Moderate tenderness in the right lower quadrant and lower abdomen. Abnormal bowel sounds: diminished. No mass. Back: Normal inspection. No CVA tenderness. Skin: Skin warm. Normal skin color. No rash. Extremities: Extremities exhibit normal ROM. No lower extremity edema. Neuro: Oriented X 3. No motor deficit. No sensory deficit. LABS, X-RAYS, AND EKG Abdominal CT: Initially read as normal appendix and then over-read as possible appendicitis. Left sided ovarian cyst noted and. Abdominal CT performed with IV contrast. The study was interpreted by the radiologist and discussed with the radiologist. Laboratory Tests: Test Result Flag Units (Reference) WHITE BLOOD COUNT 14.8 H K/uL (4.5-11.5) RED BLOOD COUNT 3.96 L M/uL (4.00-5.20) HEMOGLOBIN 12.5 gm/dL (12.0-16.0) HEMATOCRIT 36.2 % (36.0-46.0) MEAN CELL VOLUME 91 fL (80-100) MEAN CORPUSCULAR HGB 32 pg (26-34) MEAN CORPUSCULAR HGB CONC 35 g/dL (31-37) RED CELL DISTRIBUTION WIDTH 13.1 % (11.6-14.8) PLATELET COUNT 193 K/uL (150-400) NEUTROPHIL % 82.2 H % (50-75) LYMPH % 13.7 L % (25-40) MONO % 3.6 % (3-14) EOSINOPHIL % 0.4 % (0-4) BASOPHIL % 0.1 % (0-2) CMP: (CARTER: 02/27/2017 00:01) ( MsgRcvd 02/27/2017 01:20) Final results Test Result Flag Units (Reference) GLUCOSE 116 H mg/dL (70-110) BUN 13 mg/dL (7-18) CREATININE 0.7 mg/dL (0.6-1.3) Estimated GFR >60 mL/min Estimated GFR- >60 mL/min Note: Persistent reduction over 3 months in eGFR<60 mL/min/1.73 m2 defines CKD. Patients with eGFR values>=60 mL/min/1.73 m2 may also have CKD if evidence ofpersistent proteinuria. Additional information may be foundat www.kidney.org. SODIUM 138 mmol/L (136-145) POTASSIUM 3.4 L mmol/L (3.5-5.1) CHLORIDE 101 mmol/L (98-107) CARBON DIOXIDE 28 mmol/L (21-32) CALCIUM 8.6 mg/dL (8.5-10.1) TOTAL PROTEIN 7.1 g/dL (6.4-8.2) ALBUMIN 3.7 g/dL (3.3-5.0) BILIRUBIN, TOTAL 0.6 mg/dL (0.0-1.0) ALKALINE PHOSPHATASE 64 U/L (46-116) AST (SGOT) 15 U/L (15-37) ALT (SGPT) 20 U/L (12-78) LIPASE 94 U/L (73-393) AMYLASE 41 U/L (25-115) UA-Culture if indicated: (CARTER: 02/26/2017 23:47) ( MsgRcvd 02/27/2017 00:22) Final results Test Result Flag Units (Reference) URINE COLOR YELLOW URINE APPEARANCE CLEAR URINE GLUCOSE NEGATIVE (NEGATIVE) URINE BILIRUBIN NEGATIVE (NEGATIVE) URINE KETONE NEGATIVE (NEGATIVE) URINE SPECIFIC GRAVITY 1.015 (1.010-1.030) URINE PH 6.0 (5.0-8.0) URINE PROTEIN NEGATIVE (NEGATIVE) URINE UROBILINOGEN 0.2 EU/dL (0.2-1.0) URINE NITRITE NEGATIVE (NEGATIVE) URINE BLOOD NEGATIVE (NEGATIVE) URINE LEUK ESTERASE NEGATIVE (NEGATIVE) URINE RBC RARE rbc/hpf (0-1) URINE WBC 1-3 wbc/hpf (0-1) URINE EPITHELIAL CELLS 5-10 EPI/hpf (0-5) URINE BACTERIA NONE SEEN (NONE SEEN) URINE COMMENT . PROGRESS AND PROCEDURES Course of Care: IV NS Dilaudid 0.5 m IV Ativan 0.5 mg Iv Toradol 30mg IV due to initial radiology opinion being ovarian cyst. Invanz 1g IV. Discussed case with on-call health care provider. Reviewed test results. Agreed upon treatment plan and decision to admit. Health care provider will see patient in hospital. Patient/family counseled. Old medical records ordered. Disposition orders written. Disposition: Admitted to Acute Care. CLINICAL IMPRESSION Acute right lower quadrant and suprapubic abdominal pain. Acute appendicitis with localized peritonitis. (Electronically signed by Jono Najera MD 02/28/2017 6:50)
--- NOTE | 2017-02-27 07:48 | ED ORDER SUMMARY ---
..... Patient: RODRIGUE ROSE OrderSheet [facility] VisitID: [id number] [address] [place] [address] 41y, F Registration Date/Time: 02/27/2017 ORDER SHEET Weight: 56.6 kg (estimated) Allergies: None GENERAL ORDERS: MEDICATION ORDERS: IV FLUIDS: IV NS : initial bolus none -, then 150 mL/hr for 4h (NOW); Routine (07:46 02/27/2017 Pio BRADY) (Ack 7:48 MWinterer R.N.) (8:08 MWinterer R.N.) Invanz IV 1 gm (NOW) (07:46 02/27/2017 Pio BRADY) (Ack 7:48 MWinterer R.N.) (8:48 MWinterer R.N.) ORDER SHEET NOTES: [Electronically signed by Ceci Dunn R.N. (10:38 02/27/2017)] [Electronically signed by Jono Najera MD (06:50 02/28/2017)] [Electronically locked/signed by Ceci Dunn R.N. (10:38 02/27/2017)]
--- NOTE | 2017-02-27 07:48 | ED NURSING NOTES ---
Clinical Report - Nurses [facility] [place] [address] 02/27/2017 7:14 Patient: RODRIGUE ROSE TRIAGE Triage time 07:30. Acuity: LEVEL 3. Chief Complaint: ABDOMINAL PAIN and NAUSEA. Alert. No acute distress. TRICIA COMA SCORE: Tricia Coma Scale: 15- eyes open spontaneously (4); best verbal response- oriented x 4 (5); best motor response- obeys commands (6). --07:43 Bernadette Rocha R.N. 07:39 02/27/17. BP: 103/60. HR: 103. RR: 17. O2 saturation: 100% on room air. Temp: 98.9 F (oral). Pain level now 3/10. --07:43 Bernadette Rocha R.N. Weight: 56.6 kg estimated. Height/Length: 62 inches Per Patient. BMI: 22.8. --07:41 Bernadette Rocha R.N. Medications None. --07:41 Bernadette Rocha R.N. Medication/allergy information source: the patient. --07:43 Bernadette Rocha R.N. Allergies None. --07:41 Bernadette Rocha R.N. History ( revisit, pt called by noc RN requesting she return due to possibility of appendicitis. RLQ abd pain). This started yesterday. PAST MEDICAL HX: Last normal menstrual period was 2 weeks ago. Denies current . SOCIAL HX: Never smoker. Alcohol use; consumes wine by the glass daily. No drug use. ABUSE ASSESSMENT: No report of abuse. FALL RISK ASSESSMENT: Fall risk assessment completed. No fall risk identified. NUTRITIONAL RISK ASSESSMENT: The nutritional risk assessment revealed no deficiencies. FUNCTIONAL ASSESSMENT: Functional assessment: no impairments noted. LEARNING NEEDS ASSESSMENT: The learning needs assessment revealed no barriers. SKIN INTEGRITY ASSESSMENT: Skin integrity risk assessment completed. No skin integrity risk identified. --07:43 Aj, K Marci, R.N. PROBLEMS: Ovarian Cyst. --07:42 Bernadette Rocha R.N. Interventions ID band on patient. To treatment room. --07:43 Bernadette Rocha R.N. PHYSICAL ASSESSMENT Ambulatory to room. GENERAL / NEURO / PSYCH: Alert. Oriented X 4. Appears in no acute distress. RESPIRATORY: Respirations not labored. CVS: Capillary refill less than 2 seconds. GI / : Abdomen soft. Abdominal tenderness in the right lower quadrant and lower abdomen. Rebound tenderness present. SKIN: Skin is warm and dry. --07:44 Bernadette Rocha R.N. NURSING PROGRESS NOTES 07:44 02/27/17. The plan of care for this patient has been created. Patient gowned. Head of bed elevated. Call light placed in reach. Bed placed in lowest position. Brakes of bed on. Patient ready for evaluation- chart flagged. --07:44 Bernadette Rocha R.N. 08:07 02/27/2017 Site #1 started via IV in the left antecubital space with an 20g angiocath, with aseptic technique and good blood return; one attempt. Blood drawn: rainbow set. Labeled in the presence of the patient and sent to the lab. --08:07 Ceci Dunn R.N. 08:08 02/27/2017 Started bag #1 1000 mL IV Fluids IV NS (Saline); at 150 mL/hr over 4 hour(s) via site #1 via IV pump. Allergies verified and confirmed 5 rights. IV patency established. IV site checked: no pain, redness, or swelling. IV flushed thoroughly pre- and post-medication administration. --08:08 Ceci Dunn R.N. 08:48 02/27/2017 Started 1 gm of Invanz IVPB in bag #1 50 mL; at 120 mL/hr over 30 minute(s) via site #1 via IV pump. Allergies verified and confirmed 5 rights. IV patency established. IV site checked: no pain, redness, or swelling. IV flushed thoroughly pre- and post-medication administration. --08:48 Ceci Dunn R.N. DISPOSITION / DISCHARGE Disposition: observation. Transported via stretcher by [facility]. Report was given to a nurse via a phone call. Report included patient's care, treatment, medications, reviewed medication reconcilliation, and condition (including any recent changes or anticipated changes). All questions were answered. Report was acknowledged and care was transferred. (ADELA Jolley). Bed obtained and ready (209B). Patient's personal items include: cell phone, pt's reports he is taking all other belongings with him. She did not have glasses, contacts, dentures or a hearing aid. --08:59 Ceci Dunn R.N. Departure time: 08:59 Feb 27 2017. Condition at departure: improved and stable. --08:59 Ceci Dunn R.N. 09:04 02/27/17. BP: 99/54. HR: 105. RR: 18. O2 saturation: 100%. Temp: 98.5 F. --09:05 Karin Biggs 09:00 02/27/2017 Site #[address] upon admission; patent, no pain and no signs of infection or infiltration. --10:37 Ceci Dunn R.N. 09:00 02/27/2017 Invanz IVPB Continued: upon admission at the rate of 120 mL/hr. 25 mL remaining bag #1. IV patency established. IV site checked: no pain, redness, or swelling. IV flushed thoroughly. --10:36 Ceci Dunn R.N. 09:00 02/27/2017 IV Fluids IV NS Continued: at the rate of 150 mL/hr. 800 mL remaining bag #1. IV patency established. IV site checked: no pain, redness, or swelling. IV flushed thoroughly. --10:37 Ceci Dunn R.N. Locked/Released at 02/27/2017 10:38 by Ceci Dunn R.N.
--- NOTE | 2017-02-27 07:48 | ED ORDER SUMMARY ---
..... Patient: RODRIGUE ROSE OrderSheet [facility] VisitID: [id number] [address] [place] [address] 41y, F Registration Date/Time: 02/27/2017 ORDER SHEET Weight: 56.6 kg (estimated) Allergies: None GENERAL ORDERS: MEDICATION ORDERS: IV FLUIDS: IV NS : initial bolus none -, then 150 mL/hr for 4h (NOW); Routine (07:46 02/27/2017 Pio BRADY) (Ack 7:48 MWinterer R.N.) (8:08 MWinterer R.N.) Invanz IV 1 gm (NOW) (07:46 02/27/2017 Pio BRADY) (Ack 7:48 MWinterer R.N.) (8:48 MWinterer R.N.) ORDER SHEET NOTES: [Electronically signed by Ceci Dunn R.N. (10:38 02/27/2017)] [Electronically signed by Jono Najera MD (06:50 02/28/2017)] [Electronically locked/signed by Ceci Dunn R.N. (10:38 02/27/2017)]
--- NOTE | 2017-02-27 12:47 | CONSULTATION REPORT ---
DATE OF CONSULTATION: 02/27/2017 CHIEF COMPLAINT: 1. Right lower quadrant abdominal pain HISTORY OF PRESENT ILLNESS: The patient is a 41-year-old woman who presented to the emergency room last night with acute onset of lower abdominal pain starting with cramps. The cramps became more localized to the right lower quadrant and radiated through to the back and upper abdomen. She denies right upper quadrant pain. She had nausea and vomiting for last 4 hours. She last ate yesterday about 1:00 in the afternoon and has not eaten since. The patient denies diarrhea. MEDICAL/SURGICAL HISTORY: Past medical history: She had an ovarian cyst rupture at age 19 which gave her pain, but she described the pain as being very different than what she is having now. She is having normal periods. She is not using contraception. GYNECOLOGIC HISTORY: She is G4, P4 with 4 normal spontaneous vaginal deliveries. PAST SURGICAL HISTORY: D and C after her last for incomplete expulsion of placenta. MEDICATIONS: 1. None. ALLERGIES: 1. NONE. SOCIAL HISTORY: The patient is . She lives in [facility] and is [place]. She does not smoke cigarettes. She drinks less than 1 drink per day. She is a homemaker. FAMILY HISTORY: The patient reports her great grandmother had diabetes and her grandmother had breast cancer. REVIEW OF SYSTEMS: A multipoint review of systems was obtained. At least 12 systems are more were covered including head and neck, sinuses, hearing, vision, swallowing. She denies palpitations, shortness of breath, chest pain, extremity difficulties and all reviewed covered in the history of present illness PHYSICAL EXAMINATION: VITAL SIGNS: Her temperature is 98.8, pulse rate of 103, respirations 19, blood pressure 114/56, O2 saturation 98%. GENERAL: The patient is alert and cooperative. She is in moderate abdominal distress. HEENT: Her ears and nose demonstrate no gross external lesions. Eyes are equal. She is anicteric. NECK: Without palpable mass or thyromegaly. CHEST: Clear without wheeze or rales. HEART: Regular, without murmur or gallop. ABDOMEN: Reveals localized tenderness at McBurney's point with involuntary guarding and referred pain to this area. There is no pain in the right upper quadrant. Bowel sounds are hypoactive. She is nondistended. EXTREMITIES: Symmetric. She appears to move and ambulate without restriction. LAB/IMAGING: Lab tests reveal a white blood count of 14.8, hemoglobin and hematocrit 12.5 and 36. Electrolytes, potassium slightly low at 3.4. Other electrolytes are normal. Glucose slightly high at 116. Amylase and lipase are normal. Liver panel was normal. Urinalysis is negative with rare red cells, 1-[address] scan report was reviewed. There were 2 reports, one from the night radiologist and one from Dr. Gage. The report initially was a little confusing about potentially ovarian cyst or a medially shifted cecum and was felt equivocal for appendicitis. Dr. Gage reread the study and he demonstrated a partially fluid-filled tubular structure in the right lower quadrant, suspicious for distended appendix with some hyperdense material at the base with the cecum in a more medial position than usual. There are also small calcified gallstones seen without acute cholecystitis. There is a low density area in the liver which is most consistent with a hemangioma. IMPRESSION: 1. Acute appendicitis based on clinical history, physical and supporting lab and x-ray studies PLAN: I recommend the patient undergo a laparoscopic appendectomy. I reported to the patient and her the nature of this operation as well as alternatives such as antibiotic treatment and further observation. I talked to them about risks of surgery including infection, bleeding, scars, pain, damage to local structures and uncertainty of diagnosis. The patient and her would like to proceed with surgery as described to them.
[2017-02-27] MEDS ORDERED: NORCO1 TA1 PO ×2 (12:50)
--- NOTE | 2017-02-27 12:51 | Provider's Discharge Care Plan ---
Problem, Goal, Plan Problem List 1. Acute appendicitis
--- NOTE | 2017-02-27 12:51 | Provider's Discharge Care Plan ---
Problem, Goal, Plan Problem List 1. Acute appendicitis
--- NOTE | 2017-02-27 13:41 | OPERATIVE REPORT ---
DATE OF SURGERY: 02/27/2017 SURGEON: Dileep Mcghee MD PREOPERATIVE DIAGNOSIS: 1. Acute appendicitis POSTOPERATIVE DIAGNOSIS: 1. Acute appendicitis PROCEDURE PERFORMED: 1. Laparoscopic appendectomy ANESTHESIA: General. INDICATIONS: The patient is a 41-year-old woman presenting with a 1-day history of worsening right lower quadrant abdominal pain. SURGICAL TECHNIQUE: The patient was taken to the operating room, where a general anesthetic was administered and the patient prepped and draped in the usual sterile fashion. A local anesthetic of 0.5% Marcaine was used at each incision site and the patient received an orogastric tube, IV antibiotics, and sequential compression devices. An infraumbilical incision was made and a Veress needle used to insufflate the abdominal cavity. A 10 mm cannula was passed and two 5 mm in the lower midline. The patient was tilted in Trendelenburg and to the left. The appendix was seen lying along the right abdominal wall. It was grayish in coloration and clearly acutely suppurative if not gangrenous. There was no rupture or perforation seen. The mesoappendix was carefully taken down using the Thunderbeat device. The proximal 1 cm or so of the appendix was pink and viable. Two Hem-o-Yue clips were placed in this area and a clip was placed on the specimen side to prevent spillage. The appendix was partially transected and bipolar cautery applied to the exposed mucosa. The appendix was then fully transected. It was pulled entirely into the upper 10 mm cannula and removed from the abdomen inside the cannula. There was no spillage. A little local anesthetic was instilled in the abdomen, gas was evacuated, and the umbilical skin was closed with a single interrupted subcuticular 4-0 Vicryl suture. Steri-Strips and dressings were applied. The patient left in good condition. No intraoperative complications were encountered.
[2017-02-28 03:33] VITALS: BP 96/52
--- NOTE | 2017-02-28 06:51 | ED MAR SUMMARY ---
..... Medication Administration Record [facility] [address] [place] [address] Patient: RODRIGUE ROSE Visit ID: [id number] 41y, F Weight: 56.6 kg Height/Length: 62 in BMI: 22.8 ALLERGIES: None Start 08:08 02/27/2017 Ceci Dunn R.N., Continued Upon Disposition 09:00 02/27/2017 Ceci Dunn R.N. Medication Administered: IV NS (SALINE), Dose: IV Fluids over 4 hour(s), Rate: 150 mL/hr, Dispensed: 1000 mL bag, Site: #1 left AC. Medication Ordered: IV NS : initial bolus none -, then 150 mL/hr for 4h (NOW); Routine. Start 08:48 02/27/2017 Ceci Dunn R.N., Continued Upon Admission 09:00 02/27/2017 Ceci Dunn R.N. Medication Administered: INVANZ [IVPB], Dose: 1 gm IVPB over 30 minute(s), Rate: 120 mL/hr, Dispensed: 50 mL bag, Site: #1 left AC. Medication Ordered: Invanz IV 1 gm (NOW).
--- NOTE | 2017-02-28 06:51 | ED MED RECONCILIATION SUMMARY ---
Patient: RODRIGUE ROSE Medication Reconciliation Report [facility] VisitID: [id number] [address] [place] [address] 41y, F Registration Date/Time: 02/27/2017 Weight: 56.6 kg Height/Length: 62 in. BMI: 22.8 ALLERGIES: None The patient's Home Medications are listed below: NONE. The source(s) of the original Home Medication information: patient The following Medications were given to the patient in the Emergency Department: IV NS IV Fluids bolus 0, then 150 mL/hr, administered: 02/27/2017 8:08:00 AM Invanz [IVPB] IVPB bolus 0, then 1 gm 120 mL/hr, administered: 02/27/2017 8:48:00 AM The following Medications were prescribed to the patient: None.
--- NOTE | 2017-02-28 06:51 | ED DISCHARGE INSTRUCTIONS ---
Patient: RODRIGUE ROSE General Instructions [facility] VisitID: [id number] [place] [address] 41y, F Registration Date/Time: 02/27/2017 Acute right lower quadrant and suprapubic abdominal pain. Acute appendicitis with localized peritonitis. ADDITIONAL INFORMATION Abdominal Pain,Possible Appendicitis [Repeat Exam, Female] Based on your visit today, the exact cause of your abdominal (stomach) pain is not certain. However, you do have some of the early signs of APPENDICITIS. Early in an appendix infection the symptoms can be similar to a simple "stomach ache" or "stomach flu". Therefore, the diagnosis can be hard to make. Since an appendix infection is a serious condition, it is important to know if this is the cause of your symptoms. WAITING for more time to pass and repeating the exam is the best way to find out whether you have appendicitis. Within the next 12-24 hours the cause of your stomach pain should become clear. It is important for you to watch for any new symptoms or worsening of your condition. (See below). Home Care: Rest until your next exam. No strenuous activities. Eat a diet low in fiber (called a low-residue diet). Foods allowed include refined breads, white rice, fruit and vegetable juices without pulp, tender meats. These foods will pass more easily through the intestine. Avoid whole-grain foods, whole fruits and vegetables, meats, seeds and nuts, fried or fatty foods, dairy, alcohol and spicy foods until your symptoms go away. In some cases, you may be asked not to eat or drink anything until you are re-examined. Return for another exam exactly as directed. Follow Up with your doctor or this facility as directed. Get Prompt Medical Attention if any of the following occur: Pain gets worse or moves to the right lower abdomen New or worsening vomiting or diarrhea Swelling of the abdomen Unable to pass stool for more than three days Fever of 100.4F (38C) or higher, or as directed by your healthcare provider Blood in vomit or bowel movements (dark red or black color) Weakness, dizziness or fainting Unexpected vaginal bleeding You have been given the following additional information: Abdominal Pain, Possible Appendicitis (Female) (Electronically signed by Jono Najera MD 02/28/2017 6:50)
--- NOTE | 2017-02-28 06:51 | ED MAR SUMMARY ---
..... Medication Administration Record [facility] [address] [place] [address] Patient: RODRIGUE ROSE Visit ID: [id number] 41y, F Weight: 56.6 kg Height/Length: 62 in BMI: 22.8 ALLERGIES: None Start 08:08 02/27/2017 Ceci Dunn R.N., Continued Upon Disposition 09:00 02/27/2017 Ceci Dunn R.N. Medication Administered: IV NS (SALINE), Dose: IV Fluids over 4 hour(s), Rate: 150 mL/hr, Dispensed: 1000 mL bag, Site: #1 left AC. Medication Ordered: IV NS : initial bolus none -, then 150 mL/hr for 4h (NOW); Routine. Start 08:48 02/27/2017 Ceci Dunn R.N., Continued Upon Admission 09:00 02/27/2017 Ceci Dunn R.N. Medication Administered: INVANZ [IVPB], Dose: 1 gm IVPB over 30 minute(s), Rate: 120 mL/hr, Dispensed: 50 mL bag, Site: #1 left AC. Medication Ordered: Invanz IV 1 gm (NOW).
--- NOTE | 2017-02-28 06:51 | ED DISCHARGE INSTRUCTIONS ---
Patient: RODRIGUE ROSE General Instructions [facility] VisitID: [id number] [place] [address] 41y, F Registration Date/Time: 02/27/2017 Acute right lower quadrant and suprapubic abdominal pain. Acute appendicitis with localized peritonitis. ADDITIONAL INFORMATION Abdominal Pain,Possible Appendicitis [Repeat Exam, Female] Based on your visit today, the exact cause of your abdominal (stomach) pain is not certain. However, you do have some of the early signs of APPENDICITIS. Early in an appendix infection the symptoms can be similar to a simple "stomach ache" or "stomach flu". Therefore, the diagnosis can be hard to make. Since an appendix infection is a serious condition, it is important to know if this is the cause of your symptoms. WAITING for more time to pass and repeating the exam is the best way to find out whether you have appendicitis. Within the next 12-24 hours the cause of your stomach pain should become clear. It is important for you to watch for any new symptoms or worsening of your condition. (See below). Home Care: Rest until your next exam. No strenuous activities. Eat a diet low in fiber (called a low-residue diet). Foods allowed include refined breads, white rice, fruit and vegetable juices without pulp, tender meats. These foods will pass more easily through the intestine. Avoid whole-grain foods, whole fruits and vegetables, meats, seeds and nuts, fried or fatty foods, dairy, alcohol and spicy foods until your symptoms go away. In some cases, you may be asked not to eat or drink anything until you are re-examined. Return for another exam exactly as directed. Follow Up with your doctor or this facility as directed. Get Prompt Medical Attention if any of the following occur: Pain gets worse or moves to the right lower abdomen New or worsening vomiting or diarrhea Swelling of the abdomen Unable to pass stool for more than three days Fever of 100.4F (38C) or higher, or as directed by your healthcare provider Blood in vomit or bowel movements (dark red or black color) Weakness, dizziness or fainting Unexpected vaginal bleeding You have been given the following additional information: Abdominal Pain, Possible Appendicitis (Female) (Electronically signed by Jono Najera MD 02/28/2017 6:50)
--- NOTE | 2017-02-28 06:51 | ED MED RECONCILIATION SUMMARY ---
Patient: RODRIGUE ROSE Medication Reconciliation Report [facility] VisitID: [id number] [address] [place] [address] 41y, F Registration Date/Time: 02/27/2017 Weight: 56.6 kg Height/Length: 62 in. BMI: 22.8 ALLERGIES: None The patient's Home Medications are listed below: NONE. The source(s) of the original Home Medication information: patient The following Medications were given to the patient in the Emergency Department: IV NS IV Fluids bolus 0, then 150 mL/hr, administered: 02/27/2017 8:08:00 AM Invanz [IVPB] IVPB bolus 0, then 1 gm 120 mL/hr, administered: 02/27/2017 8:48:00 AM The following Medications were prescribed to the patient: None.
[2017-02-28 07:09] VITALS: BP 91/66
[2017-02-28 07:44] VITALS: BP 113/75
[2017-02-28 09:25] VITALS: BP 125/68
--- NOTE | 2017-02-28 10:31 | Progress Note ---
Subjective General Pt. had nausea yesterday and stayed in the hospital. She now feels a lot better and is ready to go home. Physical Exam Vital Signs / I&Os Vital Signs Date Time Temp Pulse Resp B/P Pulse O2 O2 Flow FiO2 Ox Delivery Rate 02/28 0925 92 125/68 02/28 0744 90 113/75 98 02/28 0710 Room Air 1.0 02/28 0709 98.4 87 20 91/66 97 Room Air 02/28 0333 98.6 60 16 96/52 98 Room Air 02/28 0046 1.0 02/27 2148 98.8 89 16 112/63 95 Room Air 02/27 1948 98.2 103 16 115/77 98 Room Air 02/27 1740 99.0 90 16 97/59 96 Room Air 02/27 1709 99.3 88 16 97/50 97 Room Air 02/27 1650 Room Air 02/27 1645 82 16 94/48 96 Room Air 02/27 1611 106 16 106/57 96 Room Air 02/27 1545 94 16 103/54 97 Room Air 02/27 1514 99.0 88 16 101/57 95 Room Air 02/27 1444 99.9 98 16 104/61 97 Room Air 02/27 1429 100.2 102 16 108/65 97 Room Air 02/27 1410 100.8 94 16 104/49 99 Nasal 1.0 Cannula 02/27 1405 94 15 99/46 99 Nasal 1.0 Cannula 02/27 1400 100.8 92 16 100/45 99 Nasal 1.0 Cannula 02/27 1355 102 18 100/49 96 Nasal 1.0 Cannula 02/27 1350 105 18 102/47 93 02/27 1345 110 16 101/48 93 02/27 1343 111 22 100/49 95 02/27 1340 113 23 75/54 97 02/27 1337 113 26 97/48 96 02/27 1335 112 19 74/55 96 02/27 1330 100.6 113 21 94/49 96 02/27 1325 108 17 99/49 96 02/27 1320 101 19 100/43 100 Nasal 2.0 Cannula 02/27 1315 96 17 87/42 99 Nasal 2.0 Cannula 02/27 1310 99 17 93/43 99 Nasal 2.0 Cannula 02/27 1305 99.9 102 19 93/44 99 Nasal 2.0 Cannula 02/27 1300 105 18 93/46 94 02/27 1255 110 21 96/45 95 02/27 1251 100.4 114 15 105/51 96 I&O 02/27 0800 02/27 1600 02/28 0000 Intake Total 1600 1784 Output Total 353 450 Balance 1247 1334 General Appearance Alert, Oriented X3, Cooperative Abdomen Normal bowel sounds, Soft, No tenderness, No guarding Assessment and Plan Problem List 1. Acute appendicitis Plan home today, follow up next week with [facility] or local physician if she returns to [place].
== END 2017-02-28 12:47 | disposition home or self-care (01) ==
LOC: ED SRH 07:14 → TRANS SRH 07:52 → ACUTE2 SRH 09:10
PROVIDERS: Surgery; ADMIT Emergency Medicine
PROC: 0DTJ4ZZ Resection of Appendix, Percutaneous Endoscopic Approach (ICD-10-PCS; principal; 2017-02-27 12:15)
DX: K35.3 Acute appendicitis with localized peritonitis (principal)
CPT/HCPCS: 29229; 29230; 50002; 60001; 70002; 80102; 80248; 80488; 82811; 82897; 83587; 83982; 84038